=== PATIENT | female | born 1970 | race Caucasian/White ===

== ENCOUNTER 2019-11-07 10:14 | Outpatient (CLI) | payer OTHER, SELFPAY ==
--- NOTE | 2019-11-07 10:21 | EST_ITS ---
Patient Info Name: Josie Sherwood Age: 49 years : 1970 Gender: Female Ht: 63 in Wt: 110 lbs BSA: 1.49 m2 Exam Date: 11/07/2019 10:31 AM Exam Location: [facility] Stress Patient Status: Outpatient Admit Date: 11/07/2019 Staff Ordering Physician: Annalee Clark NP Attending Provider: Annalee Clark NP Exercise Technologist: Genesis Gutierrez RDCS Exercise Physician: Joshua Miguel DO Exam Type: CA stress test treadmill Study Info Indications R06.00 - Dyspnea, unspecified A treadmill exercise stress test was performed. Summary 1. 1. Negative Russell exercise stress test for ischemic ST changes by ECG criteria. 2. 2. Good functional capacity, achieving 10 METs of workload. 3. 3. Appropriate HR response to exercise. 4. 4. Appropriate HR recovery at 1 minute post exercise. 5. 5. No imaging with stress testing. 6. 6. Patient informed of the above results. Protocol: Russell Stress ECG Details Stage: REST Duration (min): 0 min : 52 sec Speed (mph): 0.0 Grade (%): 0 HR (bpm): 74 SBP (mmHg): 137 DBP (mmHg): 94 METS: --- Stage: REST Duration (min): 12 min : 24 sec Speed (mph): 0.0 Grade (%): 0 HR (bpm): 100 SBP (mmHg): 137 DBP (mmHg): 94 METS: --- Stage: STAGE 1 Duration (min): 1 min : 0 sec Speed (mph): 1.7 Grade (%): 10 HR (bpm): 105 SBP (mmHg): 137 DBP (mmHg): 94 METS: --- Stage: STAGE 1 Duration (min): 2 min : 0 sec Speed (mph): 1.7 Grade (%): 10 HR (bpm): 107 SBP (mmHg): 137 DBP (mmHg): 94 METS: --- Stage: STAGE 1 Duration (min): 3 min : 0 sec Speed (mph): 1.7 Grade (%): 10 HR (bpm): 120 SBP (mmHg): 146 DBP (mmHg): 93 METS: --- Stage: STAGE 2 Duration (min): 1 min : 0 sec Speed (mph): 2.5 Grade (%): 12 HR (bpm): 128 SBP (mmHg): 146 DBP (mmHg): 93 METS: --- Stage: STAGE 2 Duration (min): 2 min : 0 sec Speed (mph): 2.5 Grade (%): 12 HR (bpm): 146 SBP (mmHg): 150 DBP (mmHg): 87 METS: --- Stage: STAGE 2 Duration (min): 3 min : 0 sec Speed (mph): 2.5 Grade (%): 12 HR (bpm): 159 SBP (mmHg): 150 DBP (mmHg): 87 METS: --- Stage: STAGE 3 Duration (min): 1 min : 0 sec Speed (mph): 3.4 Grade (%): 14 HR (bpm): 170 SBP (mmHg): 150 DBP (mmHg): 87 METS: --- Stage: STAGE 3 Duration (min): 2 min : 0 sec Speed (mph): 3.4 Grade (%): 14 HR (bpm): 176 SBP (mmHg): 150 DBP (mmHg): 87 METS: --- Stage: STAGE 3 Duration (min): 2 min : 0 sec Speed (mph): 3.4 Grade (%): 14 HR (bpm): 176 SBP (mmHg): 150 DBP (mmHg): 87 METS: --- Stage: RECOVERY Duration (min): 0 min : 59 sec Speed (mph): 0.0 Grade (%): 0 HR (bpm): 150 SBP (mmHg): 163 DBP (mmHg): 86 METS: --- Stage: RECOVERY Duration (min): 1 min : 59 sec Speed (mph)
== END 2019-11-07 10:15 | disposition home or self-care (01) ==
PROVIDERS: PCP Internal Medicine; Visit Provider Nurse Practitioner
DX: R06.09 Other forms of dyspnea (principal)
CPT/HCPCS: 93017

== ENCOUNTER 2019-12-05 00:34 | Day surgery (SDC) | payer OTHER, SELFPAY ==
[2019-11-21 13:25] VITALS: BMI 19.5
[2019-12-05] VITALS (9 sets, daily range): BP systolic 106–134; BP diastolic 67–77; PULSE 62–76; RESP 12–16; TEMP 36.2–37.7; O2SAT 93–100
[2019-12-05] MEDS: LACTATED RINGERS 1,000 ML 30 ML IV CONT ×2 (10:35→13:03)
--- NOTE | 2019-12-05 10:56 | WPDANESEPPF ---
Anes - Initial Pre Proc Eval Procedure: Operation Date: 12/05/19 12:00 Proposed Procedures p Laparoscopic Left Side Ovarian Cystectomy - Virgen Wells MD Date/Time: 12/05/19 10:56 Surgeon: Virgen Wells MD Pre Op Diagnosis: Pelvic Pain, Left Sided Ovarian Cyst Patient Data Age: 49 Gender: F Height: 5 ft 3 in Weight: 50 kg Last Vital Signs Temp 37.7 C H 12/05/19 10:48 Pulse 71 12/05/19 10:48 Resp 16 12/05/19 10:48 BP 123/73 12/05/19 10:48 Pulse Ox 100 12/05/19 10:48 Allergies Allergy/AdvReac Type Severity Reaction Status Date / Time banana Allergy Unknown THROAT Verified 12/05/19 10:18 SWELLING adhesive Allergy Rash Verified 12/05/19 10:18 codeine Allergy Hives Verified 12/05/19 10:18 [From Tylenol-Codeine] mushroom Allergy MOUTH Verified 12/05/19 10:18 SWELLING Home Medications Medication Instructions Recorded Confirmed Type ferrous sulfate 325 mg (65 mg 325 mg PO DAILY 10/31/19 12/05/19 History iron) tablet ibuprofen 400 mg PO DAILY 11/21/19 12/05/19 History multivitamin 1 tablet PO DAILY 11/21/19 12/05/19 History Patient hx anesthesia problems: none Family hx anesthesia problems: none PMFSH Past Medical History Medical History Allergies Headache, migraine Surgical History Surgical History History of lumpectomy of right breast benign Family History Family History Other Carcinoma of colon Social History Social History Smoking status: Never smoker Alcohol intake: current Anes - Eval Final PreProcedure Day of Procedure 12/05/19 10:56 Patient weight: normal Heart: regular rate and rhythm Lungs: clear to auscultation Airway: Mallampati scale class II Neurological: alert and oriented Last oral intake: >/= 8 hours ASA classification: II Emergent: no Anesthetic plan: proceed Anesthesia type and monitoring: general ETT and standard monitoring Informed Consent: The patient's anesthetic plan and its attendant risks and benefits were discussed with the patient/family/POA. Questions were solicited and answers provided to the satisfaction of the patient/family/POA.
--- NOTE | 2019-12-05 11:54 | WPDHPUPDATE1 ---
History and Physical Update Update Date/Time: 12/05/19 11:54 History and Physical has been reviewed, including an updated exam of the patient. There are NO changes in the patient's condition. Risks, benefits, and alternatives have been discussed and questions answered. Patient agrees to proceed with procedure.
[2019-12-05] MEDS: BUPIVACAINE/EPINEPHRINE 0.5% 10 ML VIAL 9 ML INFILTRATE (12:10)
[2019-12-05] MEDS: IBUPROFEN IV 800 MG/200 ML 800 MG/200 ML BAG 400 MG IVPB (12:10)
--- NOTE | 2019-12-05 12:54 | SUR.OPER ---
ebl:5cc
--- NOTE | 2019-12-05 12:56 | PM.OP ---
Procedure Note - Brief Procedure Note - Brief Date of procedure: 12/05/19 Pre-op diagnosis: Pelvic Pain, Left Sided Ovarian Cyst Post-op diagnosis: other (Pelvic pain, endometriosis) Procedure performed: Diagnostic laparoscopy, excision and cauterization of endometriosis Anesthesia: GETA Surgeon: Virgen Wells MD Estimated blood loss (mL): 5 Drains: No Packing: No Pathology: yes Complications: No immediate complications Condition: stable Disposition: PACU Findings: Normal uterus with one small (1cm) fibroid on left fundus, normal ovaries and fallopian tubes, normal appendix, liver, gall bladder. Endometriosis in cul-de-sac near right uterosacral ligament, peritoneal window in right posterior cul-de-sac
--- NOTE | 2019-12-05 13:22 | SUR.PHASEI ---
1315 pt began to desat, pt unarousable, sly rn at bedside with me, jaw thrust done, ambu bag placed on pt, oral airway still in place. anesthesia called. pt being bagged, sly rn holding bag in place, hong bagging. dr rodríguez arrived hob raised airway pushed pushed back in further. o2 sat climbing pt still unarousable. pt breathing stable airway still in place. vss. 1325 pt awake airway removed pt stable. 8L simple mask. no pain, a little nausea
[2019-12-05] MEDS: ONDANSETRON INJ 4 MG/2 ML VIAL IV PUSH (13:39)
--- NOTE | 2019-12-05 13:59 | OP_ITS ---
DATE OF PROCEDURE: 12/05/2019 PREOPERATIVE DIAGNOSES: Pelvic pain and left ovarian cyst. POSTOPERATIVE DIAGNOSES: Pelvic pain and endometriosis. PROCEDURE PERFORMED: Diagnostic laparoscopy, cauterization and excision of endometriosis. ANESTHESIA: General endotracheal tube. ESTIMATED BLOOD LOSS: 5 mL. COMPLICATIONS: None. FINDINGS: Normal uterus with 1 small 1 cm left fundal fibroid. Normal ovaries with no ovarian cysts noted. Normal fallopian tubes, liver, gallbladder, and appendix. Endometriosis in the right cul-de-sac prominently over the right uterosacral ligament and peritoneal window in the right posterior cul-de-sac. INDICATIONS: A 49-year-old G2, P2, who has had long-standing right lower quadrant pain. It is worse during ultrasound or pelvic exam, but she has no dyspareunia. She was evaluated with ultrasound and was found to have a left ovarian cyst, so she opted and signed consent for left ovarian cystectomy, possible cauterization and/or excision of endometriosis if found. DESCRIPTION OF PROCEDURE: For the procedure, she was taken to the operating room where general anesthesia was obtained. She was prepared and draped in the normal sterile fashion in the dorsal lithotomy position. Marcaine was injected infraumbilically and a 5 mm skin incision was made in the infraumbilical fold with a scalpel. A 5 mm non-bladed trocar was then placed with the camera in our trocar under direct visualization in the peritoneal cavity. Insufflation was begun and she was placed in Trendelenburg. A 5 mm trocar was then placed in the right lower quadrant under direct visualization. Inspection of the pelvis revealed the findings as noted above. Decision was made to proceed with excision of endometriosis, so a 3rd 5 mm trocar was placed in the left lower quadrant under direct visualization. The uterus was lifted up in order to see the posterior aspect of the uterus and cervix in the area where the endometriosis and peritoneal window was and the peritoneum over the right uterosacral ligament was excised and sent for pathologic evaluation, and the remainder of the endometriosis implants were cauterized. All operative sites were found to be hemostatic. The remainder of the pelvis and abdomen were inspected very closely. No further endometriosis was noted and she had no visible ovarian cysts. The pneumoperitoneum was allowed to escape. All 3 trocars were removed and all 3 skin incisions were closed using 4-0 Monocryl in subcuticular fashion. She tolerated the procedure well. Sponge, lap, needle, and instrument counts were correct x2 and she was taken to the recovery room in stable condition. D I MT: Anali
--- NOTE | 2019-12-05 15:02 | SUR.PHASEII ---
Patient has a dry cough She said her throat feels scratchy I informed the patient its from airways and oxygen used during anesthesia I asked pt if she feels like she is having a hard time breathing. She said no, I can breathe, just feels dry and scratchy Gave pt a cup of ice water to drink and recommended a lozenge when she gets home
== END 2019-12-05 15:06 | disposition home or self-care (01) ==
PROVIDERS: PCP Internal Medicine; Visit Provider Obstetrics & Gynecology
PROC: (CPT 49320; principal; 2019-12-05 12:00)
DX: N80.3 Endometriosis of pelvic peritoneum (principal); D25.9 Leiomyoma of uterus, unspecified; R10.2 Pelvic and perineal pain; N73.6 Female pelvic peritoneal adhesions (postinfective)
CPT/HCPCS: 58662; 88305; J1100; J1170; J1741; J2250; J2405; J2704; J2710; J3010; J7120

== ENCOUNTER 2020-04-21 12:05 | Emergency (ER) | payer OTHER, SELFPAY ==
--- NOTE | ~2020-04-21 | XR_ITS ---
XR abdomen/kub 1V DATE: 04/21/2020 13:02 INDICATION: Abdominal pain, right flank. Hematuria. TECHNIQUE: AP projection, 2 views COMPARISON: 04/21/2020 CT abdomen pelvis FINDINGS: The lung bases are clear. No visceromegaly is evident. The bowel gas pattern is unremarkabl e, without evidence of obstruction. Small calcification superior to the pubic symphysis is situated outside the urinary bladder upon jorgito elation with the 04/21/2020 CT abdomen pelvis examination. Included skeletal structures are unremarkable. IMPRESSION: No significant abnormality Reviewed, dictated and finalized at [facility]. Reviewed, dictated and finalized at location [facility]. IMPRESSION: No significant abnormality
--- NOTE | ~2020-04-21 | CT_ITS ---
EXAMINATION: CT abdomen pelvis wo con DATE: 04/21/2020 12:58 INDICATION: Right flank pain, hematuria TECHNIQUE: Computed tomography (CT) of the abdomen and pelvis was performed without intravenous contr ast. Automated exposure control and iterative reconstruction technique were employed. Exam dose: 168 .33 mGy-cm total exam DLP. COMPARISON: None. FINDINGS: The lung bases are clear of infiltrate or consolidation. Normal heart size. No pericardial or pleural effusion. There is an approximately 1 cm hypoattenuating lesion of the anterior lower aspect of the right hepat ic lobe with fluid attenuation, likely a cyst. Differential diagnosis includes hemangioma. No other h epatic space-occupying mass lesion is evident. The gallbladder is present. No bile duct or pancreatic duct dilatation. No pancreatic mass lesion or calcification is evident. Normal splenic size. Normal morphology of the adrenal glands. No urinary tract calculus or hydroureteronephrosis. The uterus and adnexal areas and urinary bladder are unremarkable. Normal caliber of the abdominal aorta. No intraperitoneal or retroperitoneal or pelvic mass lesion or adenopathy or ascites. Normal appendix. There is a prominent amount of fecal material in the colon but no apparent bowel obs truction, bowel wall thickening, pneumatosis or intraperitoneal free air. Small thickening umbilical hernia. No significant abnormality of the skeletal structures. IMPRESSION: Probable 1 cm right hepatic cyst No urinary tract calculus or hydroureteronephrosis is detected Normal appendix Reviewed, dictated and finalized at [facility]. Reviewed, dictated and finalized at location [facility].
[2020-04-21 12:17] VITALS: BP 125/85; PULSE 68; RESP 16; TEMP 36.7; O2SAT 100
[2020-04-21] MEDS: SODIUM CHLORIDE 0.9% IV 1,000 ML 999 ML IV CONT (13:10)
[2020-04-21] MEDS: FAMOTIDINE 20 MG/2 ML VIAL IV PUSH (13:11)
[2020-04-21 13:43] LABS: Basophils Absolute Auto 0.1 K/mm3 (0.0-0.1); Basophils Percent Auto 0.5 % (0.2-1.2); Eosinophils Absolute Auto 0.1 K/mm3 (0-0.3); Eosinophils Percent Auto 1.4 % (0-4.4); Hematocrit 37.8 % (37.0-47.0); Hemoglobin 12.5 g/dL (12.0-15.0); Immature Granulocyte Absolute 0.03 K/mm3 (0.00-0.031); Immature Granulocyte Percent A 0.3 % (0-0.5); Lymphocytes Absolute Auto 1.27 K/mm3 (0.9-3.2); Lymphocytes Percent Auto 12.4 % (18.3-44.2); Mean Corpuscular HGB Conc 33.1 g/dl (32-36); Mean Corpuscular Hemoglobin 30.5 pg (26-34); Mean Corpuscular Volume 92.2 fl (80-100); Mean Platelet Volume 11.4 fl (7.4-10.4); Monocytes Absolute Auto 0.7 K/mm3 (0.1-0.6); Monocytes Percent Auto 6.9 % (2.6-8.5); Neutrophils Absolute Auto 8.1 K/mm3 (1.3-6.7); Neutrophils Percent Auto 78.5 % (45.5-73.1); Platelet Count Result 162 k/mm3 (150-375); Red Cell Distribution Width 13.9 % (11.5-14.5); White Blood Count 10.3 K/mm3 (4.5-10.0)
[2020-04-21 13:47] LABS: Add Urine Microscopic? YES; Appearance Urine Clear (Clear); Bacteria Urine Trace /hpf; Bilirubin Urine Negative (Negative); Blood Urine 2+ (Negative); Color Urine Colorless (Yellow); Glucose Urine UA Negative (Negative); Ketones Urine Negative (Negative); Leukocyte Esterase Ur 3+ LEU/UL (Negative); Mucus Urine Rare /lpf; Nitrate Urine Negative (Negative); Protein Urine Negative (Negative); Squamous Epithelial Cell Urine Moderate /hpf (Few); Urobilinogen Urine Negative mg/dL (<2.0)
[2020-04-21 13:48] LABS: Specific Grav Ur 1.004 (1.001-1.035)
[2020-04-21 14:02] LABS: Alanine Aminotransferase 13 U/L (4-35); Albumin Level 4.2 g/dL (3.5-5.1); Alkaline Phosphatase 69 U/L (38-126); Anion Gap 12.1 mmol/L (7-16); Aspartate Amino Transferase 29 U/L (14-36); Bilirubin,Total 0.4 mg/dL (0.2-1.3); Blood Urea Nitrogen 13 mg/dL (7-17); Calcium 9.2 mg/dL (8.4-10.2); Carbon Dioxide 24 mmol/L (22-30); Chloride 104 mmol/L (98-107); Estimated CRCL calculation 76 ml/min; Estimated Glomerular Filt Rate > 60; Glucose 87 mg/dL (65-105); Potassium 4.1 mmol/L (3.4-5.0); Sodium 136 mmol/L (137-145)
--- NOTE | 2020-04-21 14:25 | ED.ABDPAIN ---
HPI - Abdominal Pain General Chief Complaint: Urogenital-Female <SHARA Boston Last Filed: 04/21/20 14:31> Stated Complaint: UTI, possible kidney stone <SHARA Boston Last Filed: 04/21/20 14:31> Time Seen by Provider: 04/21/20 12:28 <SHARA Boston Last Filed: 04/21/20 14:31> Source: patient <SHARA Boston Last Filed: 04/21/20 14:31> Mode of arrival: ambulatory <SHARA Boston Last Filed: 04/21/20 14:31> Limitations: no limitations <SHARA Boston Last Filed: 04/21/20 14:31> History of Present Illness HPI narrative: Patient is a 50-year-old female who presents to emergency department for evaluation of abdominal pain and right-sided back pain that began earlier in the week noting intermittent sharp pain has had some burning with urination and hematuria over the last 24 hours. Patient denies fever vomiting diarrhea. Patient has not taken anything for her symptoms nor has she been seen for this complaint and presents per private vehicle in no distress. Patient currently noting suprapubic discomfort <SHARA Boston Last Filed: 04/21/20 14:31> Related Data Home Medications: Home Medications Medication Instructions Recorded Confirmed ibuprofen 400 mg PO DAILY 11/21/19 12/05/19 multivitamin 1 tablet PO DAILY 11/21/19 12/05/19 <SHARA Boston Last Filed: 04/21/20 14:31> Allergies/Adverse Reactions: Allergies Allergy/AdvReac Type Severity Reaction Status Date / Time banana Allergy Unknown THROAT Verified 04/21/20 12:21 SWELLING adhesive Allergy Rash Verified 04/21/20 12:21 codeine Allergy Hives Verified 04/21/20 12:21 [From Tylenol-Codeine] mushroom Allergy MOUTH Verified 04/21/20 12:21 SWELLING <SHARA Boston Last Filed: 04/21/20 14:31> Review of Systems Review of Systems: All systems reviewed & are unremarkable except as noted in HPI and below <SHARA Boston Last Filed: 04/21/20 14:31> PMFSH Past Medical History Medical History: Medical History Allergies Headache, migraine <Genaro Shukla PA-C - Last Filed: 04/21/20 14:31> Surgical History Surgical History: Surgical History History of lumpectomy of right breast benign <Genaro Shukla PA-C - Last Filed: 04/21/20 14:31> Social History Social History: Social History Smoking status: Never smoker Alcohol intake: current <Genaro Shukla PA-C - Last Filed: 04/21/20 14:31> Exam Narrative: Exam Narrative: GENERAL: Well-appearing, well-nourished, and in no acute distress. HEAD: Normocephalic, atraumatic. EYES: PERRLA and EOMI. ENT: Nares clear, no rhinorrhea or epistaxis. Mucous membranes moist. CHEST: Clear to auscultation. No respiratory distress. No wheezes rales or rhonchi HEART: Regular rate and rhythm. No murmur heard. Normal peripheral pulses. ABDOMEN: Soft, suprapubic and right lower quadrant tenderness to palpation, nondistended EXTREMITIES: Normal range of motion. No edema. SKIN: Warm, dry, no rash. NEURO: No focal deficits. Alert and oriented x3. Cranial nerves II through XII grossly intact PSYCH: Normal mood and affect. <Genaro Shukla PA-C - Last Filed: 04/21/20 14:31> Course Course Emergency Course: Patient aware of case findings treatment plan and diagnosis agreeing to follow-up as instructed with her personal banker and primary care given medications and will follow-up as instructed patient was given fluids and IV antibiotics in the emergency department aware of case findings treatment plan diagnosis <Genaro Shukla PA-C - Last Filed: 04/21/20 14:31> Vital Signs Vital signs: Vital Signs Temperature 98.1 F 04/21/20 12:17 Pulse Rate 68 07/2
[2020-04-21 14:40] VITALS: BP 120/66; PULSE 87; RESP 16; TEMP 36.8; O2SAT 100
== END 2020-04-21 14:49 | disposition home or self-care (01) ==
PROVIDERS: Emergency Medicine Emergency Medical Services; Emergency Provider General Practice; PCP Internal Medicine
DX: N39.0 Urinary tract infection, site not specified (principal); R93.2 Abnormal findings on diagnostic imaging of liver and biliary tract
CPT/HCPCS: 36415; 74018; 74176; 80053; 81001; 85025; 87077; 87086; 87088; 87186; 96361; 96365; 96367; 96375; 99284; J0131; J0696; J7030

== ENCOUNTER 2020-12-08 17:07 | Emergency (ER) | payer OTHER, SELFPAY ==
--- NOTE | ~2020-12-08 | XR_ITS ---
EXAMINATION: XR chest 2V 12/08/2020 17:34 INDICATION: Chest pressure with shortness of breath PROCEDURE: 2 view chest COMPARISON: 02/11/2018 FINDINGS: The lungs are clear. The cardiomediastinal silhouette is within normal limits. There are no pleural effusions. There is no pneumothorax suspected. IMPRESSION: 1: NO ACUTE CARDIOPULMONARY DISEASE. Reviewed, dictated and finalized at location [facility]. P KILLER
[2020-12-08 17:14] VITALS: BP 158/94; PULSE 75; RESP 18; TEMP 36.2; O2SAT 100
--- NOTE | 2020-12-08 17:20 | ECG_ITS ---
Measurements Intervals [place] Rate: 77 P: 48 OH: 119 QRS: 64 QRSD: 78 T: 2 QT: 351 QTc: 399 Interpretive Statements SINUS RHYTHM WITH SHORT [place] INTERVAL POSSIBLE LEFT ATRIAL ENLARGEMENT INCOMPLETE RIGHT BUNDLE BRANCH BLOCK NONSPECIFIC ST & T-WAVE ABNORMALITY- ANTEROLAT/INF LEADS BASELINE ARTIFACT- II, III, AVR, AVL, AVF BORDERLINE ECG Electronically Signed On 12-08-2020 18:07:01 BUFFER MACHINE by Joshua Miguel D.O.
[2020-12-08 17:36] LABS: Basophils Percent Auto 0.3 % (0.2-1.2); Hematocrit 37.4 % (37.0-47.0); Hemoglobin 12.6 g/dL (12.0-15.0); Immature Granulocyte Absolute 0.02 K/mm3 (0.00-0.031); Immature Granulocyte Percent A 0.3 % (0-0.5); Lymphocytes Absolute Auto 1.45 K/mm3 (0.9-3.2); Lymphocytes Percent Auto 22.1 % (18.3-44.2); Mean Corpuscular HGB Conc 33.7 g/dl (32-36); Mean Corpuscular Hemoglobin 29.3 pg (26-34); Mean Platelet Volume 10.9 fl (7.4-10.4); Monocytes Absolute Auto 0.6 K/mm3 (0.1-0.6); Monocytes Percent Auto 8.4 % (2.6-8.5); Neutrophils Absolute Auto 4.5 K/mm3 (1.3-6.7); Neutrophils Percent Auto 68.9 % (45.5-73.1); Platelet Count Result 212 k/mm3 (150-375); Red Cell Distribution Width 13.1 % (11.5-14.5); White Blood Count 6.6 K/mm3 (4.5-10.0)
[2020-12-08 17:49] LABS: Anion Gap 5 mmol/L (8-16); Blood Urea Nitrogen 10 mg/dL (7-17); Calcium 9.3 mg/dL (8.4-10.2); Carbon Dioxide 28 mmol/L (22-30); Chloride 105 mmol/L (98-107); Estimated CRCL calculation 70 ml/min; Estimated Glomerular Filt Rate > 60; Glucose 113 mg/dL (65-105); INR 0.9; Potassium 3.8 mmol/L (3.4-5.0); Prothrombin Time 12.7 Seconds (11.1-14.7); Sodium 138 mmol/L (137-145)
[2020-12-08 17:50] LABS: Partial Thromboplastin Time 24.9 SECONDS (22.3-36.8)
[2020-12-08 18:01] LABS: Troponin I < 0.012 ng/mL (0.000-0.034)
[2020-12-08 18:04] VITALS: BP 135/87; PULSE 66; RESP 20; O2SAT 96
--- NOTE | 2020-12-08 18:35 | ED.CHESTPAIN ---
HPI - Chest Pain General Chief Complaint: Chest Pain Stated Complaint: Chest pressure, heart racing, COVID + 11/26/20 Time Seen by Provider: 12/08/20 18:06 Source: patient Mode of arrival: ambulatory Limitations: no limitations History of Present Illness HPI narrative: 6-axey-lwn-year-old with the complaints of intermittent palpitations and shortness of breath for past few days. Patient states that she recovered from Covid few weeks ago since last few days she has been having these symptoms. She states that she has seen her primary doctor yesterday and was started on prednisone. She presently denies any cough, fever. Patient states that with ambulation she feels like her heart is working hard and feels a pressure in the mid chest area. MD complaint: chest discomfort Timing of current episode: episodic Prior episodes: No Onset: during exertion Pain location: substernal Pain radiation: none Severity: moderate Quality: heaviness Relieving factors: rest Context: recent illness (Had Covid) Risk Factors Coronary artery disease risk factors: none Related Data On Oral Contraceptives: No Home Medications Medication Instructions Recorded Confirmed multivitamin 1 tablet PO DAILY 11/21/19 12/03/20 Allergies Allergy/AdvReac Type Severity Reaction Status Date / Time banana Allergy Unknown THROAT Verified 12/08/20 17:17 SWELLING adhesive Allergy Rash Verified 12/08/20 17:17 codeine Allergy Hives Verified 12/08/20 17:17 [From Tylenol-Codeine] mushroom Allergy MOUTH Verified 12/08/20 17:17 SWELLING Review of Systems Review of Systems: All systems reviewed & are unremarkable except as noted in HPI and below Constitutional: Constitutional: Reports no additional constitutional complaints Eyes: Eyes: Reports no additional eye complaints ENT: Reports system reviewed and no additional complaints, except as documented Cardiovascular: Cardiovascular: Reports as per HPI Respiratory: Respiratory: Reports as per HPI Gastrointestinal: Gastrointestinal: Reports no additional gastrointestinal complaints Genitourinary: Genitourinary: Reports no additional female genitourinary complaints Musculoskeletal: Musculoskeletal: Reports no additional musculoskeletal complaints Neurologic: Reports system reviewed and no additional complaints, except as documented Psychiatric: Psychiatric: Reports no additional psychiatric complaints [facility] Past Medical History Medical History Allergies Anemia Asthma Headache, migraine Pneumonia Vaginal delivery X2 Full term Male 7lbs 14oz Full term Male 5lbs 12oz Surgical History Surgical History H/O breast surgery 2009, 2014, 2019 H/O LEEP History of lumpectomy of right breast benign Status post laparoscopy 11/2019 Family History Family History Mother Hyperlipidemia Father Hypertension Other Carcinoma of colon Social History Social History Smoking status: Never smoker Alcohol intake: current Drinks per week: 3 Substance use: never Exam Narrative: Exam Narrative: GENERAL: Well-appearing, well-nourished, and in no acute distress. HEAD: Normocephalic, atraumatic. EYES: PERRLA and EOMI. NECK: Supple. CHEST: Clear to auscultation. No respiratory distress. HEART: Regular rate and rhythm. No murmur heard. Normal peripheral pulses. ABDOMEN: Soft, nontender, nondistended, normal active bowel sounds. EXTREMITIES: Normal range of motion. No edema. SKIN: Warm, dry, no rash. NEURO: No focal deficits. Alert and oriented x3. PSYCH: Normal mood and affect. Course Course Emergency Course: Patient comfortably resting on the bed in no discomfort heart rate is in the 80s. I discussed labs chest x-ray findings. Shortness of breath could be underlyin
[2020-12-08 18:36] VITALS: BP 130/83; PULSE 80; RESP 20; O2SAT 100
[2020-12-08 18:41] LABS: D Dimer 0.27 ug/mL (<0.48)
[2020-12-08 19:24] VITALS: BP 126/84; PULSE 73; RESP 20; O2SAT 99
== END 2020-12-08 19:26 | disposition home or self-care (01) ==
PROVIDERS: Emergency Medicine; Emergency Provider Family Medicine; PCP Internal Medicine
DX: R00.2 Palpitations (principal); R07.9 Chest pain, unspecified; Z86.16 Personal history of COVID-19; J45.909 Unspecified asthma, uncomplicated; Z86.2 Personal history of diseases of the blood and blood-forming organs and certain disorders involving the immune mechanism; I45.10 Unspecified right bundle-branch block; R94.31 Abnormal electrocardiogram [ECG] [EKG]
CPT/HCPCS: 36415; 71046; 80048; 84484; 85025; 85380; 85610; 85730; 93005; 99284

== ENCOUNTER → 2021-10-18 03:21 | Outpatient (CLI) | payer OTHER, SELFPAY ==
[2021-10-18 21:56] LABS: SARS-CoV-2 RNA PCR Negative
== END ==
PROVIDERS: PCP Internal Medicine; Visit Provider Internal Medicine Gastroenterology
DX: Z20.822 Contact with and (suspected) exposure to COVID-19 (principal)
CPT/HCPCS: C9803; U0003; U0005

== ENCOUNTER 2021-10-21 00:41 | Day surgery (SDC) | payer OTHER, SELFPAY ==
[2021-10-10 14:49] VITALS: BMI 19.4
[2021-10-21 08:30] VITALS: BP 131/76; PULSE 83; RESP 18; TEMP 36.6; O2SAT 99; BMI 19.4
[2021-10-21] MEDS: LACTATED RINGERS 1,000 ML 150 ML IV CONT (08:51)
--- NOTE | 2021-10-21 08:58 | WPDANESEPPF ---
Anes - Initial Pre Proc Eval Procedure: Operation Date: 10/21/21 09:30 Proposed Procedures p Esophagogastroduodenoscopy - Christiano Pizano MD Date/Time: 10/21/21 08:58 Surgeon: Christiano Pizano MD Pre Op Diagnosis: dysphagia Patient Data Age: 51 Gender: F Height: 1.63 m Weight: 51.4 kg Last Vital Signs Temp 36.6 C 10/21/21 08:30 Pulse 83 10/21/21 08:30 Resp 18 10/21/21 08:30 BP 131/76 10/21/21 08:30 Pulse Ox 99 10/21/21 08:30 Allergies Allergy/AdvReac Type Severity Reaction Status Date / Time banana Allergy Unknown THROAT Verified 10/21/21 08:38 SWELLING adhesive Allergy Rash Verified 10/21/21 08:38 codeine Allergy Hives Verified 10/21/21 08:38 [From Tylenol-Codeine] mushroom Allergy MOUTH Verified 10/21/21 08:38 SWELLING nifedipine AdvReac [place] Verified 10/21/21 08:38 Home Medications Medication Instructions Recorded Confirmed Type multivitamin 1 tablet PO DAILY 11/21/19 10/21/21 History ibuprofen 200 mg capsule 200 mg PO Q6H PRN 10/09/21 10/21/21 History nifedipine 30 mg tablet,extended 30 mg PO DAILY #30 tablet 10/09/21 10/21/21 Rx release Patient hx anesthesia problems: none Family hx anesthesia problems: none Results Review: All pre-operative results and documents have been reviewed as part of the pre-operative evaluation. [facility] Past Medical History Medical History Allergies Anemia Asthma Headache, migraine Pneumonia Vaginal delivery X2 Full term Male 7lbs 14oz Full term Male 5lbs 12oz Surgical History Surgical History H/O breast surgery 2009, 2014, 2018 H/O LEEP History of lumpectomy of right breast benign Status post laparoscopy 11/2019 Family History Family History Mother Hyperlipidemia Father Hypertension Other Carcinoma of colon Social History Social History Smoking status: Never smoker Alcohol intake: current Drinks per week: 2 Alcohol use details: occasionally Substance use: never Substance use type: does not use Living arrangements: with family Spiritual care concerns: No Anes - Eval Final PreProcedure Day of Procedure 10/21/21 08:58 Patient weight: overweight Heart: regular rate and rhythm Lungs: clear to auscultation and normal air movement Airway: Mallampati scale class II Neurological: alert and oriented Last oral intake: >/= 8 hours ASA classification: II Emergent: no Anesthetic plan: proceed Anesthesia type and monitoring: general GIVS Results Review: All pre-operative results and documents have been reviewed as part of the pre-operative evaluation. Informed Consent: The patient's anesthetic plan and its attendant risks and benefits were discussed with the patient/family/POA. Questions were solicited and answers provided to the satisfaction of the patient/family/POA.
--- NOTE | 2021-10-21 09:04 | PM.HPGS ---
History of Present Illness History of Present Illness Consent: Risks, benefits, and alternatives have been discussed and questions answered. Patient agrees to proceed with procedure. Chief complaint: dysphagia Narrative: Josie Sherwood is a 51 year old female here with intermittent dysphagia to solids, never had egd. She is not using ppi. Also other myriad of symptoms and had a recent + MIKI, she will see a personal companion. Review of Systems Constitutional: Constitutional: Denies headache(s) and Denies weakness Eyes: Eyes: Denies blurry vision ENT: Reports Normal hearing present, Denies headache(s) and Denies neck pain Cardiovascular: Cardiovascular: Denies chest pain and Denies dyspnea Respiratory: Respiratory: Denies dyspnea Gastrointestinal: Gastrointestinal: Reports no additional gastrointestinal complaints Genitourinary: Genitourinary: Denies dysuria Musculoskeletal: Musculoskeletal: Denies neck pain Integumentary/Breasts: Skin/Breast: Denies dry skin Neurologic: Reports Normal hearing present, Denies headache(s) and Denies weakness Psychiatric: Psychiatric: Denies anxiety Endocrine: Endocrine: Denies change in body appearance Hematologic/Lymphatic: Hematologic/Lymphatic: Denies easy bleeding Allergic/Immunologic: Allergic/Immunologic: Denies urticaria PMFSH Past Medical History Medical History Allergies Anemia Asthma Headache, migraine Pneumonia Vaginal delivery X2 Full term Male 7lbs 14oz Full term Male 5lbs 12oz Surgical History Surgical History H/O breast surgery 2009, 2014, 2018 H/O LEEP History of lumpectomy of right breast benign Status post laparoscopy 11/2019 Family History Family History Mother Hyperlipidemia Father Hypertension Other Carcinoma of colon Social History Social History Smoking status: Never smoker Alcohol intake: current Drinks per week: 2 Alcohol use details: occasionally Substance use: never Substance use type: does not use Living arrangements: with family Spiritual care concerns: No Meds Home Medications and Allergies Home Medications Medication Instructions Recorded Confirmed Type multivitamin 1 tablet PO DAILY 11/21/19 10/21/21 History ibuprofen 200 mg capsule 200 mg PO Q6H PRN 10/09/21 10/21/21 History nifedipine 30 mg tablet,extended 30 mg PO DAILY #30 tablet 10/09/21 10/21/21 Rx release Allergies Allergy/AdvReac Type Severity Reaction Status Date / Time banana Allergy Unknown THROAT Verified 10/21/21 08:38 SWELLING adhesive Allergy Rash Verified 10/21/21 08:38 codeine Allergy Hives Verified 10/21/21 08:38 [From Tylenol-Codeine] mushroom Allergy MOUTH Verified 10/21/21 08:38 SWELLING nifedipine AdvReac Flushing Verified 10/21/21 08:38 Vital Signs Vital Signs - 24 hr 10/21/21 08:30 Temperature 97.9 F Pulse Rate 83 Respiratory Rate 18 Blood Pressure 131/76 Pulse Oximetry 99 Exam Const: General: comfortable and no acute distress HENMT: General nose exam: Normal nares present Eyes: General: appearance normal, both eyes and all related structures Neck: Neck: no JVD Resp: Auscultation: clear to auscultation bilaterally Cardio: Rate: regular rate Rhythm: regular rhythm GI: Inspection: non-distended GI Palp: Yes Soft to palpation Skin: General skin exam: normal color Neuro: General: gait normal Speech: normal speech Extrem: General: normal to inspection Psych: Mental Status: mental status grossly normal Assessment and Plan Assessment and plan (1) Dysphagia: Code(s): R13.10 - Dysphagia, unspecified Status: Acute Assessment and Plan: egd with bx, check for esophagitis, stricture, egd
[2021-10-21 09:16] VITALS: BP 102/62; PULSE 85; RESP 15; O2SAT 98
[2021-10-21 09:26] VITALS: BP 118/71; PULSE 70; RESP 18; O2SAT 100
[2021-10-21 09:36] VITALS: BP 102/63; PULSE 85; RESP 23; O2SAT 100
== END 2021-10-21 10:00 | disposition home or self-care (01) ==
PROVIDERS: PCP Internal Medicine; Visit Provider Internal Medicine Gastroenterology
PROC: 0DJ08ZZ Inspection of Upper Intestinal Tract, Via Natural or Artificial Opening Endoscopic (ICD-10-PCS; CPT 43235; principal; 2021-10-21 09:30)
DX: R13.19 Other dysphagia (principal); K21.00 Gastro-esophageal reflux disease with esophagitis, without bleeding; K29.50 Unspecified chronic gastritis without bleeding; D64.9 Anemia, unspecified; J45.909 Unspecified asthma, uncomplicated
CPT/HCPCS: 43239; 88305; J2704; J7120

== ENCOUNTER 2022-01-29 01:44 | Day surgery (SDC) | payer OTHER, SELFPAY ==
[2022-01-14 13:13] VITALS: BMI 19.6
--- NOTE | 2022-01-29 08:49 | WPDANESEPPF ---
Anes - Initial Pre Proc Eval Procedure: Operation Date: 01/29/22 10:00 Proposed Procedures p Screening Colonoscopy - Christiano Pizano MD Date/Time: 01/29/22 08:49 Surgeon: Christiano Pizano MD Pre Op Diagnosis: neoplasm screening Patient Data Age: 52 Gender: F Height: 1.63 m Weight: 52 kg Allergies Allergy/AdvReac Type Severity Reaction Status Date / Time banana Allergy Unknown THROAT Verified 01/29/22 08:55 SWELLING adhesive Allergy Rash Verified 01/29/22 08:55 codeine Allergy Hives Verified 01/29/22 08:55 [From Tylenol-Codeine] mushroom Allergy MOUTH Verified 01/29/22 08:55 SWELLING nifedipine AdvReac Flushing Verified 01/29/22 08:55 Home Medications Medication Instructions Recorded Confirmed Type multivitamin 1 tablet PO DAILY 11/21/19 01/14/22 History ibuprofen 200 mg capsule 200 mg PO Q6H PRN 10/09/21 01/14/22 History omeprazole 20 mg PO DAILY 01/14/22 01/14/22 History Patient hx anesthesia problems: none Family hx anesthesia problems: none Results Review: All pre-operative results and documents have been reviewed as part of the pre-operative evaluation. [facility] Past Medical History Medical History (Updated 01/29/22 @ 08:50 by Miguel Dunham DO) Allergies Anemia Asthma GERD (gastroesophageal reflux disease) Headache, migraine Pneumonia Vaginal delivery X2 Full term Male 7lbs 14oz Full term Male 5lbs 12oz Surgical History Surgical History H/O breast surgery 2009, 2014, 2018 H/O LEEP History of lumpectomy of right breast benign Status post laparoscopy 11/2019 Family History Family History Mother Hyperlipidemia Father Hypertension Other Carcinoma of colon Social History Social History Smoking status: Never smoker Alcohol intake: current Drinks per week: 2 Alcohol use details: WINE Substance use: never Substance use type: does not use Living arrangements: with family Spiritual care concerns: No Anes - Eval Final PreProcedure Day of Procedure 01/29/22 08:49 Patient weight: thin Heart: regular rate and rhythm Lungs: clear to auscultation and normal air movement Airway: Mallampati scale class II Neurological: alert and oriented Last oral intake: >/= 8 hours ASA classification: II Emergent: no Anesthetic plan: proceed Anesthesia type and monitoring: general GIVS and standard monitoring Results Review: All pre-operative results and documents have been reviewed as part of the pre-operative evaluation. Informed Consent: The patient's anesthetic plan and its attendant risks and benefits were discussed with the patient/family/POA. Questions were solicited and answers provided to the satisfaction of the patient/family/POA.
[2022-01-29 08:56] VITALS: BP 133/91; PULSE 87; RESP 16; TEMP 36.2; O2SAT 100
[2022-01-29] MEDS: LACTATED RINGERS 1,000 ML 150 ML IV CONT (09:05)
--- NOTE | 2022-01-29 09:21 | PM.HPGS ---
History of Present Illness History of Present Illness Consent: Risks, benefits, and alternatives have been discussed and questions answered. Patient agrees to proceed with procedure. Chief complaint: neoplasm screening Narrative: Josie Sherwood is a 52 year old female here for first screening colonoscopy Review of Systems Constitutional: Constitutional: Denies headache(s) and Denies weakness Eyes: Eyes: Denies blurry vision ENT: Reports Normal hearing present, Denies headache(s) and Denies neck pain Cardiovascular: Cardiovascular: Denies chest pain and Denies dyspnea Respiratory: Respiratory: Denies dyspnea Gastrointestinal: Gastrointestinal: Reports no additional gastrointestinal complaints Genitourinary: Genitourinary: Denies dysuria Musculoskeletal: Musculoskeletal: Denies neck pain Integumentary/Breasts: Skin/Breast: Denies dry skin Neurologic: Reports Normal hearing present, Denies headache(s) and Denies weakness Psychiatric: Psychiatric: Denies anxiety Endocrine: Endocrine: Denies change in body appearance Hematologic/Lymphatic: Hematologic/Lymphatic: Denies easy bleeding Allergic/Immunologic: Allergic/Immunologic: Denies urticaria PMF Past Medical History Medical History (Updated 01/29/22 @ 09:21 by Christiano Pizano MD) Allergies Anemia Asthma Colon cancer screening GERD (gastroesophageal reflux disease) Headache, migraine Pneumonia Vaginal delivery X2 Full term Male 7lbs 14oz Full term Male 5lbs 12oz Surgical History Surgical History H/O breast surgery 2009, 2014, 2018 H/O LEEP History of lumpectomy of right breast benign Status post laparoscopy 11/2019 Family History Family History Mother Hyperlipidemia Father Hypertension Other Carcinoma of colon Social History Social History Smoking status: Never smoker Alcohol intake: current Drinks per week: 2 Alcohol use details: WINE Substance use: never Substance use type: does not use Living arrangements: with family Spiritual care concerns: No Meds Home Medications and Allergies Home Medications Medication Instructions Recorded Confirmed Type multivitamin 1 tablet PO DAILY 11/21/19 01/14/22 History ibuprofen 200 mg capsule 200 mg PO Q6H PRN 10/09/21 01/14/22 History omeprazole 20 mg PO DAILY 01/14/22 01/14/22 History Allergies Allergy/AdvReac Type Severity Reaction Status Date / Time banana Allergy Unknown THROAT Verified 01/29/22 08:55 SWELLING adhesive Allergy Rash Verified 01/29/22 08:55 codeine Allergy Hives Verified 01/29/22 08:55 [From Tylenol-Codeine] mushroom Allergy MOUTH Verified 01/29/22 08:55 SWELLING nifedipine AdvReac Flushing Verified 01/29/22 08:55 Vital Signs Vital Signs - 24 hr 01/29/22 08:56 Temperature 97.1 F L Pulse Rate 87 Respiratory Rate 16 Blood Pressure 133/91 H Pulse Oximetry 100 Exam Const: General: comfortable and no acute distress HENMT: General nose exam: Normal nares present Eyes: General: appearance normal, both eyes and all related structures Neck: Neck: no JVD Resp: Auscultation: clear to auscultation bilaterally Cardio: Rate: regular rate Rhythm: regular rhythm GI: Inspection: non-distended GI Palp: Yes Soft to palpation Skin: General skin exam: normal color Neuro: General: gait normal Speech: normal speech Extrem: General: normal to inspection Psych: Mental Status: mental status grossly normal Assessment and Plan Assessment and plan (1) Colon cancer screening: Code(s): Z12.11 - Encounter for screening for malignant neoplasm of colon Status: Acute Assessment and Plan: colonoscopy
[2022-01-29 09:40] VITALS: BP 106/61; PULSE 75; RESP 19; O2SAT 99
[2022-01-29 09:50] VITALS: BP 107/74; PULSE 77; RESP 19; O2SAT 100
[2022-01-29 10:00] VITALS: BP 121/82; PULSE 62; RESP 15; O2SAT 99
== END 2022-01-29 10:11 | disposition home or self-care (01) ==
PROVIDERS: PCP Internal Medicine; Visit Provider Internal Medicine Gastroenterology
PROC: 0DJD8ZZ Inspection of Lower Intestinal Tract, Via Natural or Artificial Opening Endoscopic (ICD-10-PCS; CPT 45378; principal; 2022-01-29 10:00)
DX: Z12.11 Encounter for screening for malignant neoplasm of colon (principal); K64.8 Other hemorrhoids; K21.9 Gastro-esophageal reflux disease without esophagitis; J45.909 Unspecified asthma, uncomplicated
CPT/HCPCS: 45378; J2704; J7120

== ENCOUNTER → 2022-09-05 10:08 | Outpatient (CLI) | payer OTHER, SELFPAY ==
--- NOTE | ~2022-09-05 | US_ITS ---
US abdomen complete EXAMINATION: US Abdomen Complete INDICATION: Abdominal pain PROCEDURE: Realtime High Resolution abdomen ultrasound. COMPARISON: No prior studies for comparison FINDINGS: Gallbladder within normal limits. No gallstones, pericholecystic fluid, gallbladder wall t hickening or biliary dilatation. Common bile duct measures 3 mm. Liver echotexture within normal limits. There is a 1.2 cm liver cyst.. Pancreas within normal limits . Pancreatic tail is obscured by bowel gas. Spleen is unremarkeable. Renal echotexture is within no rmal limits bilaterally without hydronephrosis, contour deforming mass or renal stone. Right kidney m easures 9.4 cm. Left kidney measures 9.2 cm. Visualized aspects of the aorta and IVC are within normal limits. Portal vein is patent. No sonograph ic Marte's sign indicated by the technologist. No abnormality is identified in the right or left low er quadrants. Appendix not visualized. IMPRESSION: 1: Unremarkable abdominal ultrasound. Reviewed, dictated and finalized at location [facility]. [employer]
== END ==
PROVIDERS: PCP Nurse Practitioner; Visit Provider Nurse Practitioner
DX: R10.9 Unspecified abdominal pain (principal)
CPT/HCPCS: 76700

== ENCOUNTER 2023-11-13 09:37 | Emergency (ER) | payer OTHER, SELFPAY ==
--- NOTE | ~2023-11-13 | XR_ITS ---
XR chest 2V DATE: 11/13/2023 10:06 INDICATION: Right upper lung pain for 5 days TECHNIQUE: 2 views COMPARISON: 12/08/2020 PA and lateral chest 02/11/2018 two-view chest 04/21/2020 CT abdomen pelvis FINDINGS: Heart size is within normal limits. No hilar or mediastinal enlargement. No pulmonary infiltrate or consolidation, pleural effusion or pulmonary vascular congestion or pneumo thorax. Mild thoracic levoscoliosis. IMPRESSION: No active cardiopulmonary disease Reviewed, dictated and finalized at location [facility] [employer]
[2023-11-13 09:46] VITALS: BP 127/85; PULSE 76; RESP 16; TEMP 36.6; O2SAT 100
--- NOTE | 2023-11-13 09:56 | ED.URI ---
HPI - URI/Sore Throat General Chief Complaint: Upper Respiratory Infection Stated Complaint: R LUNG PAIN Source: patient Mode of arrival: ambulatory Limitations: no limitations History of Present Illness HPI Narrative: 53 y/o female presented for c/o pain to right upper chest when coughing, sneezing, or deep breathing. Onset 5 days. States the pain radiated from front to back last night. Reports a lingering mild cough following a viral infection 3 weeks ago. Reports mild fatigue. Denies hemoptysis, sob, wheezing, n/v/d/f/c. Took ibuprofen today. States she was seen by campus executive director 4 days ago, and was told labwork was normal. Related Data Home Medications Medication Instructions Recorded Confirmed multivitamin 1 tablet PO DAILY 11/21/19 11/13/23 Allergies Allergy/AdvReac Type Severity Reaction Status Date / Time banana Allergy Unknown THROAT Verified 11/13/23 09:44 SWELLING adhesive Allergy Rash Verified 11/13/23 09:44 codeine Allergy Hives Verified 11/13/23 09:44 [From Tylenol-Codeine] mushroom Allergy MOUTH Verified 11/13/23 09:44 SWELLING nifedipine AdvReac Flushing Verified 11/13/23 09:44 Review of Systems Review of Systems: CONSTITUTIONAL: Denies body aches, fever, chills, or sweats. EYES: Denies visual changes, redness, or discharge. ENT: Denies rhinorrhea, congestion, sore throat, or otalgia. CARDIOVASCULAR: Denies chest pain, palpitations, or edema. RESPIRATORY: Reports cough, right chest pain; denies sob, wheezing. GASTROINTESTINAL: Denies abdominal pain, nausea, vomiting, or diarrhea. SKIN: Denies rash, itching, or wounds. MUSCULOSKELETAL: Denies back pain, joint pain NEUROLOGIC: Denies headache, numbness, tingling, or weakness. All systems reviewed & are unremarkable except as noted in HPI and below PMFSH Past Medical History Medical History Allergies Anemia Asthma Colon cancer screening GERD (gastroesophageal reflux disease) Headache, migraine Pneumonia Vaginal delivery X2 Full term Male 7lbs 14oz Full term Male 5lbs 12oz Surgical History Surgical History H/O breast surgery 2009, 2015, 2019 H/O LEEP History of lumpectomy of right breast benign Status post laparoscopy 11/2019 Family History Family History Mother Hyperlipidemia Father Hypertension Other Carcinoma of colon Social History Social History Smoking status: Never smoker Alcohol intake: current Drinks per week: 2 Alcohol use details: WINE Substance use: never Substance use type: does not use Lack of Transportation: No Lack of Food: Never True Current Housing: I Have Housing Concerned About Future Housing: No Difficulty Paying Gas/Electric Bills: No Difficulty Paying for Meds: No Living arrangements: with family Spiritual care concerns: No Comments At time of signature, I have reviewed and agree with nursing past medical, surgical, social and family history unless otherwise noted. Please see nursing chart for further information. There is no relevant family history pertinent to the presenting complaint Exam Narrative: GENERAL: Well-appearing EYES: EOMI. No redness or drainage. Conjunctivae normal. ENT: Mucous membranes pink and moist. No rhinorrhea. TMs normal bilaterally. Throat normal. Uvula midline. NECK: Normal AROM. Supple. CHEST: No respiratory distress. Lungs clear to all may. Mild anterior upper chest wall tenderness and right sternal border tenderness with palpation. HEART: Regular rate and rhythm. No murmur appreciated. EXTREMITIES: Normal range of motion. No edema. SKIN: Warm, dry, no rash. Capillary refill normal. Normal skin turgor. NEURO: Alert and oriented x3. Gait steady. PSYCH: Normal affect. Course
== END 2023-11-13 10:29 | disposition home or self-care (01) ==
PROVIDERS: Emergency Provider Nurse Practitioner Family; PCP Family Medicine Sports Medicine
DX: M94.0 Chondrocostal junction syndrome [Tietze] (principal); J45.909 Unspecified asthma, uncomplicated; K21.9 Gastro-esophageal reflux disease without esophagitis
CPT/HCPCS: 71046; 99213; G0463

== ENCOUNTER 2024-08-18 12:02 | Emergency (ER) | payer OTHER, SELFPAY ==
--- NOTE | ~2024-08-18 | XR_ITS ---
EXAMINATION: XR forearm RT 2V DATE: 08/18/2024 13:14 INDICATION: Anterior right forearm pain post fall TECHNIQUE: AP an lateral views of the right forearm were obtained. COMPARISON: none FINDINGS: Bone alignment is normal. No fracture. Joint spaces are normal. Soft tissues are unremarkable. No elb ow joint effusion. IMPRESSION: 1. Negative right forearm radiographs. Reviewed, dictated and finalized at location B. TRUSS DETAILER
--- NOTE | 2024-08-18 13:03 | ED_ITS ---
HPI - Extremity Injury (Upper) General Chief Complaint: Extremity Injury, Upper Stated Complaint: rt arm injury Time Seen by Provider: 08/18/24 13:03 Source: patient, RN notes reviewed and old records reviewed Mode of arrival: ambulatory Limitations: no limitations History of Present Illness HPI narrative: 54-year-old female who presents to [facility] with complaints of injury to right forearm medial aspect when she was caring a small table from car last evening. and fell. She reports that she hit the medial right forearm on the table in perpendicular fashion and now continures to experience pain to right forearm with some bruising noted. Patient is able to pronate and supinate forearm without difficulty strong pulses to right arm. MD complaint: injury to: forearm (right) Onset (ago): day(s) (last evening) Place: home Severity scale (1-10): 4 Treatments prior to arrival: other (none) Related Data Home Medications Medication Instructions Recorded Confirmed No Home Medications 08/18/24 08/18/24 Allergies Allergy/AdvReac Type Severity Reaction Status Date / Time banana Allergy Unknown THROAT Verified 08/18/24 12:50 SWELLING adhesive Allergy Rash Verified 08/18/24 12:50 codeine Allergy Hives Verified 08/18/24 12:50 [From Tylenol-Codeine] mushroom Allergy MOUTH Verified 08/18/24 12:50 SWELLING nifedipine AdvReac Flushing Verified 08/18/24 12:50 Review of Systems Review of Systems: CONSTITUTIONAL: Denies fever, chills, or sweats. EYES: Denies visual changes, redness, or discharge. ENT: Denies rhinorrhea, congestion, sore throat, or otalgia. CARDIOVASCULAR: Denies chest pain, palpitations, or edema. RESPIRATORY: Denies cough or dyspnea. GASTROINTESTINAL: Denies abdominal pain, nausea, vomiting, or diarrhea. GENITOURINARY: Denies dysuria or hematuria. SKIN: Denies rash or itching. MUSCULOSKELETAL: Denies back pain,reports pain to medial aspect of her right forearm from injury, or myalgia. NEUROLOGIC: Denies headache, numbness, or weakness. PSYCHIATRIC: Denies anxiety or depression. All systems reviewed & are unremarkable except as noted in HPI and below PMFSH Past Medical History Medical History Allergies Anemia Asthma Colon cancer screening GERD (gastroesophageal reflux disease) Headache, migraine Pneumonia Vaginal delivery X2 Full term Male 7lbs 14oz Full term Male 5lbs 12oz Surgical History Surgical History H/O breast surgery 2009, 2014, 2019 H/O LEEP History of lumpectomy of right breast benign Status post laparoscopy 11/2019 Family History Family History Mother Hyperlipidemia Father Hypertension Other Carcinoma of colon Social History Social History Smoking status: Never smoker Alcohol intake: current Drinks per week: 2 Alcohol use details: WINE Substance use: never Substance use type: does not use Lack of Transportation: No Lack of Food: Never True Current Housing: I Have Housing Concerned About Future Housing: No Difficulty Paying Gas/Electric Bills: No Difficulty Paying for Meds: No Living arrangements: with family Spiritual care concerns: No Comments At time of signature, agree with nursing past medical, surgical, social and family history. There is no relevant family history pertinent to the presenting complaint Exam Narrative: GENERAL: Well-appearing, well-nourished, and in no acute distress. HEAD: Normocephalic, atraumatic. EYES: PERRLA and EOMI. ENT: Nares clear, no rhinorrhea or epistaxis. Mucous membranes moist. NECK: Supple. no lymphadenopathy CHEST: Clear to auscultation. No respiratory distress.SAO2 100% on room air HEART: Regular rate and rhythm. No murmur heard. Normal peripheral pulses. ABDOMEN: Soft, nontender, nondistended, normal active bowel sounds. EXTREMITIES: Normal range of motion. No edema.reports injury to right forearm medial aspect with some bruising noted, patient is able to pronate and supinate right forearm strong right radial pulse sensation intact. SKIN: Warm, dry, no rash. NEURO: No focal deficits. Alert and oriented x3. Course Course Emergency Course: Patient is aware of diagnosis, understands and agrees to treatment plan.? Anticipatory guidance given.? Patient agrees to follow-up as directed and is aware of reasons to seek care at the emergency department. Portions of this record may have been created with voice recognition software Level of Care: Express Care Visit Vital Signs Vital signs: Vital Signs Temperature 36.6 C 08/18/24 13:17 Pulse Rate 77 08/18/24 13:17 Respiratory Rate 16 08/18/24 13:17 Blood Pressure 131/74 08/18/24 13:17 Pulse Oximetry 100 08/18/24 13:17 Temperature 36.6 C 08/18/24 13:17 Pulse Rate 77 08/18/24 13:17 Respiratory Rate 16 08/18/24 13:17 Blood Pressure 131/74 08/18/24 13:17 Pulse Oximetry 100 08/18/24 13:17 Reviewed MDM - Extremity Injury (Upper) Differential Diagnosis Differential diagnosis: Likely other (pain to right medial forearm. contusion right forearm, sprain and strain right forearm) Medical Records Attestation: I reviewed the patient's medical records. Imaging Data Attestation: I personally reviewed and interpreted this imaging study as follows: My impression: Negative right forearm x-ray, no elbow joint effsuion noted Radiologist's impression: [facility] [address] [place] [address] XRay Report Signed Patient: Josie Sherwood : 1970 MR#: [id number] Age: 54 Acct:[id number] Loc: [id number] ADM Date: 08/18/24Attending Dr: Ordering Physician: Venecia Puri APRN Date of Service: 08/18/24 Procedure(s): XR forearm RT 2V Accession Number(s): [id number] cc: PRODUCTION SUPERINTENDENT HYDRO PHYSICIAN; Venecia Puri APRN~ EXAMINATION: XR forearm RT 2V DATE: 08/18/2024 13:14 INDICATION: Anterior right forearm pain post fall TECHNIQUE: AP an lateral views of the right forearm were obtained. COMPARISON: none FINDINGS: Bone alignment is normal. No fracture. Joint spaces are normal. Soft tissues are unremarkable. No elbow joint effusion. IMPRESSION: 1. Negative right forearm radiographs. Reviewed, dictated and finalized at [facility] B. [employer] COLLECTION TECHNICIAN Dictated By: Khai Kunz MD 08/18/24 1334 Signed By: <Electronically signed by Khai Kunz MD in OV> Critical Care Time Critical Care Time Critical Care Time: No Discharge Plan Discharge Clinical Impression: Contusion of forearm, right Patient Disposition: Home, Self-Care Condition: Stable Instructions: Contusion in Adults (ED) Additional Instructions: Elastic wrap or orthopedic splint as directed for comfort for the next 5-7 days Tylenol for lesser pain Ibuprofen regularly for the next 2-3 days for the inflammation Follow-up with orthopedic surgeon if any continued problems Follow-up with PCP if further problems or concerns Ice to the area 20-30 minutes 4-6 times a day Elevate above heart If your symptoms persist, change or worsen significantly before you can contact your personal physician then please, without delay, go to the emergency department for further evaluation. Follow-up with PCP in 7-10 days or sooner if needed Follow up with PCP soon in regards to your blood pressure which is elevated above threshold for referral. Blood pressure above 120/80 may indicate pre-hypertension. 131/74 Prescriptions: No Action No Home Medications Follow-up/Referrals: PHYSICIAN,PRODUCTION SUPERINTENDENT HYDRO [Primary Care Provider] - Time of Disposition: 14:10 Quality Aurora Coma Scale Eyes: Open Verbal: Oriented and Alert Motor: Follows Commands Aurora Coma Total Score: 15
[2024-08-18 13:17] VITALS: BP 131/74; PULSE 77; RESP 16; TEMP 36.6; O2SAT 100
== END 2024-08-18 14:18 | disposition home or self-care (01) ==
PROVIDERS: Emergency Provider Registered Nurse
DX: S50.11XA Contusion of right forearm, initial encounter (principal); W22.8XXA Striking against or struck by other objects, initial encounter; J45.909 Unspecified asthma, uncomplicated; K21.9 Gastro-esophageal reflux disease without esophagitis
CPT/HCPCS: 73090; 99213; G0463